=== PATIENT | male | born 1970 | race Caucasian/White ===

== ENCOUNTER 2018-01-20 10:30 | Inpatient (IN) | payer MEDICARE, MEDICAID ==
[~2018-01-20] VITALS: Ht 172.7 cm; Wt 94.3 kg
[~2018-01-20 10:30] MED LIST: BUPR75TA3; DULO60CA45; METF500T7
--- NOTE | 2018-01-20 10:40 | NUR ---
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 DENIES HEAD TRAUMA. VSS. COLLIN BY FOR EVAL. SAFETY AND COMFORT MEASURES PROVIDED. WILL MONITOR.
[2018-01-20] MEDS ORDERED: ONDANSETRON HCL/PF 4 MG/2 ML VIAL ONE (11:50)
--- NOTE | 2018-01-20 11:50 | NUR ---
IV ACCESS STARTED. BLOOD DRAWN FOR LABS. MEDICATED ORDERED.
[2018-01-20] MEDS ORDERED: FENTANYL PF 100MCG/2ML AMPUL ONE (11:51)
[2018-01-20] MEDS ORDERED: IV NS 0.9% 1,000 ML BAG IV ONE (12:00)
[2018-01-20] MEDS ORDERED: FENTANYL PF 100MCG/2ML AMPUL IV ONE (12:00)
[2018-01-20] MEDS ORDERED: ONDANSETRON HCL/PF - ER 4 MG/2 ML VIAL IV ONE (12:00)
[2018-01-20 12:07] LABS: BASOPHILS % (AUTO) 0.2 % (0.0-2.0); EOSINOPHILS % (AUTO) 1.1 % (0.0-6.0); HEMATOCRIT 42 % (39-51); HEMOGLOBIN 14.2 g/dL (13.5-17.5); LYMPHOCYTES % (AUTO) 16.7 % (20.0-44.0); MEAN CORPUSCULAR HGB CONC 34 g/dl (31.0-36.0); MEAN CORPUSCULAR VOLUME 93 fL (80-96); MONOCYTES # (AUTO) 0.7 /CMM (0.1-1.30); MONOCYTES % (AUTO) 11.4 % (2.0-12.0); NEUTROPHILS # (AUTO) 4.1 /CMM (1.8-8.9); NEUTROPHILS % (AUTO) 70.6 % (43.0-81.0); PLATELET COUNT (AUTO) 162 /CMM (150-450); RDW COEFFICIENT OF VARIATION 13.2 (11.5-15.0); RED BLOOD CELL COUNT(AUTO) 4.47 MIL/uL (4.5-6.0); WHITE BLOOD COUNT (AUTO) 5.7 K/uL (4.3-11.0)
[2018-01-20 12:08] LABS: CALCIUM, SERUM 8.1 mg/dL (8.5-10.1); CREATININE 0.6 mg/dL (0.6-1.3); POTASSIUM 3.7 mmol/L (3.5-5.1)
[2018-01-20 12:11] LABS: INR 0.94 (0.85-1.15)
--- NOTE | 2018-01-20 12:57 | NUR ---
PT IS ASSIGNED TO MED SURG RM#: [id number], PT IS DIAGNOSED WITH RIGHT SHOULDER FRACTURE, AND DEE DÍAZ IS THE ACCEPTING MD/TREE LOADER MEAT.
--- NOTE | 2018-01-20 13:42 | NUR ---
REPORT GIVEN TO PAULETTE PEREZ FOR MS 206.
--- NOTE | 2018-01-20 14:45 | NUR ---
CAREER PLACEMENT SPECIALIST RECEIVED PATIENT FROM E.R. DEPARTMENT, A/OX3, VERBALLY RESPONSIVE BUT DROWSY. PATIENT C/O PAIN ON HIS RIGHT SHOULDER 12/17, PATIENT SKIN ASSESSMENT COMPLETED, PHOTOS TAKEN AND PLACED IN CHART, PHYSICAL ASSESSMENT COMPLETED, LEFT AC #18 PATENT AND FLUSHES WELL, PATIENT KEPT COMFORTABLE WHILE WAITING FOR ADMISSION ORDERS.
[2018-01-20] MEDS ORDERED: ONDANSETRON HCL/PF 4 MG/2 ML VIAL IVP PRN (15:00)
[2018-01-20] MEDS ORDERED: ACETAMINOPHEN 325 MG TABLET PO PRN (15:00)
[2018-01-20] MEDS ORDERED: ZOLPIDEM TARTRATE 5 MG TABLET PO PRN (15:00)
[2018-01-20] MEDS ORDERED: MAGNESIUM HYDROXIDE 30 ML UDC PO PRN (15:00)
[2018-01-20] MEDS ORDERED: HYDROCODONE/APAP 5/325MG 1 EACH TABLET PO PRN (15:00)
[2018-01-20] MEDS ORDERED: MAG HYDROX/AL HYDROX/SIMETH 30 ML UDC PO PRN (15:00)
[2018-01-20 16:21] VITALS: BP 131/85
--- NOTE | 2018-01-20 17:00 | NUR ---
RN NOTES RECEIVED A CALL FROM ROSSY VILLALPANDO, PATIENT WILL NOT LIKELY HAVE ANY SURGICAL INTERVENTION, BUT WOULD LIKE TO ORDER CT SCAN OF RIGHT SHOULDER FOR CONFIRMATION. PATIENT'S SLING APPLIED TO RIGHT ARM. WILL CONTINUE TO MONITOR.
--- NOTE | 2018-01-20 18:58 | NUR ---
RN NOTES PATIENT ASLEEP BUT EASILY AROUSABLE, CT CHEST COMPLETED, BUT RESULT STILL PENDING. BREATHING EVEN AND UNLABORED, NO SOB NOTED, DENIES PAIN OR DISCOMFORT AT THIST ALVA, PATIENT ATE DINNER, NEEDS ATTENDED AND MET, CALL LIGHT WITHIN REACH, SAFETY MEASURES IN PLACED, BED ALARM ON, WILL CONTINUE TO MONITOR.
--- NOTE | 2018-01-20 19:00 | NUR ---
MS RN NOTES RECEIVE PT IN BED A/O X4 , NO S/S OF DISTRESS, STABLE, SAFETY MEASURES IN PLACE, CALL LIGHT WITHIN REACH, WILL CONTINUE TO MONITOR
[2018-01-20 20:00] VITALS: BP 130/72
[2018-01-20] MEDS: HYDROCODONE/APAP 10/325MG 1 EA TABLET PO PRN (21:24)
[2018-01-21 06:20] LABS: BASOPHILS % (AUTO) 0.3 % (0.0-2.0); EOSINOPHILS % (AUTO) 1.4 % (0.0-6.0); HEMATOCRIT 42 % (39-51); HEMOGLOBIN 14.4 g/dL (13.5-17.5); LYMPHOCYTES # (AUTO) 0.9 /CMM (0.8-4.8); LYMPHOCYTES % (AUTO) 18.3 % (20.0-44.0); MEAN CORPUSCULAR HGB CONC 34 g/dl (31.0-36.0); MEAN CORPUSCULAR VOLUME 94 fL (80-96); MONOCYTES # (AUTO) 0.7 /CMM (0.1-1.30); MONOCYTES % (AUTO) 13.2 % (2.0-12.0); NEUTROPHILS # (AUTO) 3.3 /CMM (1.8-8.9); NEUTROPHILS % (AUTO) 66.8 % (43.0-81.0); PLATELET COUNT (AUTO) 141 /CMM (150-450); RDW COEFFICIENT OF VARIATION 13.3 (11.5-15.0); RED BLOOD CELL COUNT(AUTO) 4.48 MIL/uL (4.5-6.0)
[2018-01-21 06:38] LABS: CALCIUM, SERUM 7.8 mg/dL (8.5-10.1); CREATININE 0.7 mg/dL (0.6-1.3); MAGNESIUM 1.9 mg/dL (1.8-2.4); PHOSPHORUS 3.5 mg/dL (2.5-4.9); POTASSIUM 4.2 mmol/L (3.5-5.1)
--- NOTE | 2018-01-21 06:39 | NUR ---
MS RN NOTES PT ASLEEP COMFORTABLY IN BED AND EASILY AWAKEN HEAD OF BED ELEVATED FOR BETTER LUNG EXPANSION AND GOOD CIRCULATION. TOLERATING ROOM AIR 99% NOT IN RESPIRATORY DISTRESS. STABLE CONDITION. NO ACUTE CHANGES THROUGHOUT THE SHIFT. PT KEPT CLEAN AND DRY AND COMFORT. NURSING CARE RENDERED. NEEDS ATTENDED AND ANTICIPATED. GOOD SKIN CARE PROVIDED. ON LOW BED TO ENSURE SAFETY, CALL LIGHT WITHIN REACH, WILL ENDORSE TO THE NEXT SHIFT CONTINUE PLAN OF CARE
--- NOTE | 2018-01-21 07:25 | NUR ---
ms rn initial notes Received patient in bed, asleep, head of bed elevated, no SOB or distress noted, on room air and tolerated well. Right sling in placed. No facial grimace noted. IV intact and patent. Call light with in patient reach, will continue to monitor accordingly.
[2018-01-21 08:00] VITALS: BP 124/79
[2018-01-21 16:00] VITALS: BP 135/77
[2018-01-21] MEDS ORDERED: Z GUARD REMEDY 2 OZ OINT TP PRN (16:00)
--- NOTE | 2018-01-21 19:00 | NUR ---
MS RN NOTES RECEIVE PT IN BED A/O X 3 , NO S/S OF DISTRESS, STABLE, SAFETY MEASURES IN PLACE, CALL LIGHT WITHIN REACH, WILL CONTINUE TO MONITOR
--- NOTE | 2018-01-21 19:14 | NUR ---
ms rn closing notes All needs provided, attended, and anticipated. Patient in stable condition. Endorsed to next shift RN to continue care.
[2018-01-21 20:00] VITALS: BP 132/73
[2018-01-21] MEDS: HYDROCODONE/APAP 10/325MG 1 EA TABLET PO PRN (21:23)
--- NOTE | 2018-01-22 06:36 | NUR ---
MS RN NOTES PT IN BED NOT IN DISTRESS AM CARE PROVIDED. TOLERATING ROOM AIR 98%. STABLE CONDITION. NO ACUTE CHANGES THROUGHOUT THE SHIFT. KEPT CLEAN AND DRY AND COMFORT. NURSING CARE RENDERED. NEEDS ATTENDED AND ANTICIPATED. REMAIN RUE SLING. ON LOW BED TO ENSURE SAFETY, CALL LIGHT WITHIN REACH, WILL ENDORSE TO THE NEXT SHIFT CONTINUE PLAN OF CARE
[2018-01-22] MEDS: HYDROCODONE/APAP 10/325MG 1 EA TABLET PO PRN (06:41)
--- NOTE | 2018-01-22 07:30 | NUR ---
ms rn initial notes Received patient in bed, awake, head of bed elevated, no SOB or distress noted, on room air and tolerated well. IV intact and patent, HL only. Patient is alert and oriented x 3, verbally responsive and able to make needs known. No complaint of pain or discomfort at this time. Right shoulder sling in placed. Call light with in patient reach, will continue to monitor accordingly.
[2018-01-22 08:00] VITALS: BP_SYST 124; BP_SYST 127; BP_DIAS 70; BP_DIAS 79
[2018-01-22 16:00] VITALS: BP 130/71
--- NOTE | 2018-01-22 19:23 | NUR ---
ms rn closing notes All needs provided, attended, and anticipated, patient is in stable condition, endorsed to next shift RN to continue care. Call light with in patient reach.
--- NOTE | 2018-01-22 19:30 | NUR ---
RN NOTES RECEIVED PATIENT IN BED AWAKE, AO X 3, ABLE TO MAKE NEEDS KNOWN. NO ACUTE DISTRESS NOTED. IV SITE PATENT, INTACT; FLUSHED. RIGHT UPPER EXTREMITY IN SLING. SAFETY REMINDERS GIVEN. ON LOW BED WITH BILATERAL UPPER SIDE RAILS UP. CALL GIBSON WITHIN EASY REACH. WILL CONTINUE TO MONITOR.
[2018-01-22 19:57] VITALS: BP 131/74
[2018-01-22 20:00] VITALS: BP 131/74
--- NOTE | 2018-01-23 06:11 | NUR ---
RN NOTES PATIENT ASLEEP, EASILY AROUSABLE. RESPIRATIONS EVEN. NO SIGNS OF PAIN NOTED. NEEDS ATTENDED. KEPT CLEAN, DRY, AND COMFORTABLE. SAFETY PRECAUTIONS AND COMFORT MEASURES IN PLACE. WILL GIVE REPORT TO DAY SHIFT FOR CONTINUITY OF CARE.
[2018-01-23 08:00] VITALS: BP 122/64
[2018-01-23 08:10] VITALS: BP 122/64
--- NOTE | 2018-01-23 10:02 | NUR ---
WOUND CARE CONSULT: PT IS AMBULATORY AND CONTINENT WITH SLING ON RT UPPER EXTREMITY. DRY SCAB NOTED TO RT LOWER LEG. NO DRAINAGE, TENDERNESS OR REDNESS NOTED. WILL SEE PRN. IN AGREEMENT WITH PLAN OF CARE. CURRENT VIKY SCORE IS 19.
--- NOTE | 2018-01-23 15:35 | NUR ---
ms rn notes Patient was informed by case finishing machine adjuster about discharge and accepted by [facility] and per patient I don't want to go there and explained the risk and benefits x 3 and still insisted not to go there, per patient " just send me on the street", patient was very aggressive and called security, verbally abusive and tried to swing on the nurses. IV access disconnected and dressed. Patient left against medical advice, refused to sign discharge paper and belongings list. MD and charge nurse made aware.
[2018-01-23 16:05] VITALS: BP 125/74
== END 2018-01-23 15:35 | disposition left against medical advice (07) | DRG 563 ==
LOC: ER 10:32 → MEDSG2 13:23
PROVIDERS: ADMIT Nurse Practitioner Acute Care; ATTEND Nurse Practitioner Acute Care
DX: S42.211A Unspecified displaced fracture of surgical neck of right humerus, initial encounter for closed fracture (principal); S22.41XA Multiple fractures of ribs, right side, initial encounter for closed fracture; W18.30XA Fall on same level, unspecified, initial encounter; Y92.89 Other specified places as the place of occurrence of the external cause; E11.9 Type 2 diabetes mellitus without complications; F32.9 Major depressive disorder, single episode, unspecified; Z59.0 Homelessness; E66.9 Obesity, unspecified; Z68.31 Body mass index [BMI] 31.0-31.9, adult; F15.10 Other stimulant abuse, uncomplicated; F12.10 Cannabis abuse, uncomplicated; I10 Essential (primary) hypertension; F41.9 Anxiety disorder, unspecified; Z79.84 Long term (current) use of oral hypoglycemic drugs; Z79.899 Other long term (current) drug therapy
CPT/HCPCS: 36415; 71045-TC; 73030-TC; 73200-TC; 80048-TC; 80061-TC; 83735-TC; 84100-TC; 85025-TC; 85730-TC; 87081-TC; A4565; A4606; J2405; J3010; J7030; Z7610

== ENCOUNTER → 2022-07-20 | Emergency (ER) | payer MEDICAID, MEDICARE ==
[~2022-07-20] VITALS: Ht 172.7 cm; Wt 106.6 kg
[~2022-07-20] MED LIST changes: +DIGO125T PO; +DILT60TA3 PO; +LISI-768 PO; +METF-881; -METF500T7; +METO25TA20 PO; +RIVA10TA PO
[2022-07-20 16:20] VITALS: BP 96/56
--- NOTE | 2022-07-20 16:28 | NUR ---
CALLED FOR TRIAGE, NO RESPONSE
== END | disposition home or self-care (01) ==
LOC: ER 16:23
DX: F19.20 Other psychoactive substance dependence, uncomplicated (principal); I10 Essential (primary) hypertension; E11.9 Type 2 diabetes mellitus without complications; F41.9 Anxiety disorder, unspecified; F32.A Depression, unspecified; F17.200 Nicotine dependence, unspecified, uncomplicated; Z79.899 Other long term (current) drug therapy

== ENCOUNTER 2022-07-22 15:16 | Inpatient (IN) | payer MEDICAID ==
[~2022-07-22] VITALS: Ht 170.2 cm; Wt 108.9 kg
[~2022-07-22 15:16] MED LIST changes: -DIGO125T PO; -DILT60TA3 PO; -LISI-768 PO; -METO25TA20 PO; -RIVA10TA PO
[2022-07-22] MEDS ORDERED: KETAMINE HCL (500MG/10ML) 50 MG/ML VIAL ONE (15:45)
[2022-07-22] MEDS ORDERED: DILTIAZEM HCL 25 MG IV ONE ×2 (15:48→18:05)
[2022-07-22] MEDS ORDERED: KETAMINE HCL (500MG/10ML) 50 MG/ML VIAL IV ONE (16:00)
[2022-07-22] MEDS ORDERED: DILTIAZEM HCL 50 MG IV IV ONE ×2 (16:00→18:00)
[2022-07-22 16:03] LABS: BASOPHILS % (AUTO) 0.3 % (0.0-2.0); EOSINOPHILS % (AUTO) 0.2 % (0.0-6.0); HEMATOCRIT 43 % (39-51); HEMOGLOBIN 14.2 g/dL (13.5-17.5); LYMPHOCYTES # (AUTO) 2.4 K/uL (0.8-4.8); LYMPHOCYTES % (AUTO) 17.8 % (20.0-44.0); MEAN CORPUSCULAR HGB CONC 33 g/dl (31.0-36.0); MEAN CORPUSCULAR VOLUME 95 fL (80-96); MONOCYTES % (AUTO) 14.3 % (2.0-12.0); NEUTROPHILS # (AUTO) 9.2 K/uL (1.8-8.9); NEUTROPHILS % (AUTO) 67.4 % (43.0-81.0); PLATELET COUNT (AUTO) 128 K/uL (150-450); RED BLOOD CELL COUNT(AUTO) 4.56 MIL/uL (4.5-6.0); WHITE BLOOD COUNT (AUTO) 13.7 K/uL (4.3-11.0)
[2022-07-22 16:20] LABS: CALCIUM, SERUM 7.7 mg/dL (8.5-10.1); CARBON DIOXIDE 28 mmol/L (21-32); CHLORIDE 105 mmol/L (98-107); CREATININE 0.7 mg/dL (0.6-1.3); GLUCOSE 117 mg/dL (74-106); POTASSIUM 3.6 mmol/L (3.5-5.1); SODIUM SERUM 136 mmol/L (136-145); UREA NITROGEN, BLOOD 19 mg/dL (7-18)
[2022-07-22] MEDS ORDERED: DIGO125T PO (17:42)
[2022-07-22] MEDS ORDERED: RIVA10TA PO (17:42)
[2022-07-22] MEDS ORDERED: LISI-768 PO (17:42)
[2022-07-22] MEDS ORDERED: METO25TA20 PO (17:42)
[2022-07-22] MEDS ORDERED: DILT60TA3 PO (17:42)
--- NOTE | 2022-07-22 19:09 | NUR ---
BIBA RA60 Homeless picked up from [facility] c/o Bilateral Leg-Knee pain. PT WAS FOUND IN AFIB RVR AND GIVEN CARDIZEM IVP. PT CURRENTLY AT A RATE OF 90BPM. AWAKE AND ALERT X4 BREATHIND EVEN AND UNLABORED REMAINS ON MONITOR AND V/S WNL.
--- NOTE | 2022-07-22 19:10 | NUR ---
COVID SWAB DONE AND SENT
[2022-07-22] MEDS ORDERED: Z GUARD REMEDY 4 OZ OINT TP PRN (21:00)
[2022-07-22] MEDS ORDERED: ACETAMINOPHEN 325 MG TABLET PO PRN (21:00)
[2022-07-22] MEDS ORDERED: MAGNESIUM HYDROXIDE 30 ML UDC PO PRN (21:00)
[2022-07-22] MEDS ORDERED: MAG HYDROX/AL HYDROX/SIMETH 30 ML UDC PO PRN (21:00)
[2022-07-22] MEDS ORDERED: ONDANSETRON HCL/PF 4 MG/2 ML VIAL IVP PRN (21:00)
[2022-07-22] MEDS ORDERED: ZOLPIDEM TARTRATE 5 MG TABLET PO PRN (21:00)
[2022-07-22] MEDS: FUROSEMIDE 20 MG/2 ML VIAL IV ONE (21:00)
[2022-07-22] MEDS: CEFTRIAXONE 1 G in IV D5W 50 ML IV SCH (21:30)
--- NOTE | 2022-07-22 22:49 | NUR ---
REPORT GIVEN TO ER SALVADOR Addendum: 07/22/22 at 2311 by ENRIKE ANA FRANCO
--- NOTE | 2022-07-22 23:24 | NUR ---
PT TRANSPORTED TO ROOM 304-2 ON CARDIAC PER ACLS
--- NOTE | 2022-07-22 23:30 | NUR ---
SPRAY MACHINE LOADER ADMISSION NOTE RECEIVED REPORT FROM ANA GARCIA IN ER. PT IS BEING ADMITTED FOR A FIB, RVR. PT A/O X4, ABLE TO VERBALIZE NEEDS. PT ON ROOM AIR, ABLE TO TOLERATE ROOM AIR. NO ACUTE DISTRESS NOTED. NO C/O PAIN AT THIS TIME. PT ABLE TO AMBULATE TO BATHROOM WITH ASSIST. PT HAS REDNESS, AND RASH TO GROIN AREA, AND TO SACRAL AREA, AND BILATERAL BUTTOCKS. REDNESS ALSO NOTED TO BILATERAL FEET, AND RIGHT HAND. DISCOLORATIONS TO BLE, AND EXCORATIONS TO SILVERIO KNEES. IV ACCESS TO RIGHT FA 20 G, PATENT, AND INTACT. SAFETY MEASURES IN PLACE: BED LOCKED, IN LOWEST POSITION, SIDE RAILS UP X 2, CALL LIGHT WITHIN REACH. WILL CONTINUE TO MONITOR PT.
[2022-07-23] MEDS ORDERED: CEFTRIAXONE 1 G VIAL ONE (01:36)
[2022-07-23] MEDS ORDERED: FUROSEMIDE 20 MG/2 ML VIAL ONE (01:37)
[2022-07-23] MEDS: FUROSEMIDE 20 MG/2 ML VIAL IV ONE (02:33)
[2022-07-23] MEDS: CEFTRIAXONE 1 G in IV D5W 50 ML IV SCH (02:35)
[2022-07-23 04:00] VITALS: BP 117/71
[2022-07-23 06:03] LABS: BASOPHILS % (AUTO) 0.2 % (0.0-2.0); EOSINOPHILS % (AUTO) 0.9 % (0.0-6.0); HEMATOCRIT 42 % (39-51); HEMOGLOBIN 13.9 g/dL (13.5-17.5); LYMPHOCYTES # (AUTO) 1.7 K/uL (0.8-4.8); MEAN CORPUSCULAR HGB CONC 33 g/dl (31.0-36.0); MEAN CORPUSCULAR VOLUME 96 fL (80-96); MONOCYTES # (AUTO) 0.8 K/uL (0.1-1.30); NEUTROPHILS # (AUTO) 5.8 K/uL (1.8-8.9); NEUTROPHILS % (AUTO) 69.9 % (43.0-81.0); PLATELET COUNT (AUTO) 116 K/uL (150-450); RED BLOOD CELL COUNT(AUTO) 4.39 MIL/uL (4.5-6.0); WHITE BLOOD COUNT (AUTO) 8.4 K/uL (4.3-11.0)
--- NOTE | 2022-07-23 07:05 | NUR ---
LONG TERM CARE SOCIAL WORKER CLOSING NOTE LEFT PT SITTING IN BED. PT A/O X4, ABLE TO VERBALIZE NEEDS. PT ON ROOM AIR, ABLE TO TOLERATE ROOM AIR. NO ACUTE DISTRESS NOTED. NO C/O PAIN AT THIS TIME. PT ABLE TO AMBULATE TO BATHROOM WITH ASSIST. IV ACCESS TO RIGHT FA 20 G, IV PATENT, AND INTACT. SAFETY MEASURES IN PLACE: BED LOCKED, IN LOWEST POSITION, SIDE RAILS UP X 2, CALL LIGHT WITHIN REACH. WILL ENDORSE PT'S CARE TO AM NURSE.
--- NOTE | 2022-07-23 07:30 | NUR ---
INDOOR LANDSCAPE ARCHITECT OPENING NOTES RECEIVED PATIENT IN THE ROOM , AWAKE , STTING ON CHAIR , ROOM AIR WITH NO SOB OR DISTRESS NOTED , A/O X 3 AND TALKING TO HIMSELF , , NO C/O OF PAIN AND DISCOMFORT , RIGHT FA IV LINE #20 G INTACT , ON TELE WITH A- FLUTTER HR 144 , SAFETY MEASURES PROVIDED , CALL LIGHT WITHIN REACH , AND ALL NEED ATTENDED AND WILL CONTINUE TO MONITOR
[2022-07-23 08:12] VITALS: BP 140/82
[2022-07-23 08:17] LABS: CALCIUM, SERUM 7.6 mg/dL (8.5-10.1); CREATININE 0.9 mg/dL (0.6-1.3); PHOSPHORUS 2.6 mg/dL (2.5-4.9); POTASSIUM 3.6 mmol/L (3.5-5.1)
[2022-07-23] MEDS: CALCIUM CARB 600MG /VIT D 1 EACH TABLET PO SCH (08:35)
[2022-07-23] MEDS: DIGOXIN 0.125 MG TABLET PO SCH (08:37)
[2022-07-23] MEDS: RIVAROXABAN 10 MG TABLET PO SCH (08:39)
[2022-07-23] MEDS ORDERED: LISINOPRIL (5MG) 5 MG TABLET PO SCH (09:00)
[2022-07-23] MEDS ORDERED: DILTIAZEM HCL PO SCH (09:00)
[2022-07-23] MEDS ORDERED: METOPROLOL TARTRATE 25 MG TABLET PO SCH (09:00)
--- NOTE | 2022-07-23 09:00 | NUR ---
RN NOTES PATIENT IS ON TELE AND DOESNT WANT TO USE THE MOBILE MANAGER , DESPITE EXPLAINATION OF RISKS AND BENEFTIS . ALERT AND ABLE TO MAKE NEEDS KNOWN BUT WITH CONFUSION AND FORGETFULNESS .
[2022-07-23] MEDS: METOPROLOL TARTRATE 25 MG TABLET PO SCH ×3 (09:26→17:40)
[2022-07-23] MEDS: LORAZEPAM 1 MG TABLET PO PRN ×2 (09:26→20:02)
--- NOTE | 2022-07-23 09:26 | NUR ---
RN NOTES PATIENT NOTED TO BE VERY ANXIOUS AND YELLING TO STAFF AND WANTS TO GO OUT AND OFFERED HIM TO SIGN AGAINST MEDICAL ADVICE AND HE REFUSED , ATIVAN WAS GIVEN ORDERED , ALL MEDS WERE TAKEN , CONTINUE TO MONITOR
[2022-07-23] MEDS: NICOTINE PATCH (21MG) 21 MG PATCH.TD24 TD SCH (12:37)
[2022-07-23 12:40] VITALS: BP 108/73
--- NOTE | 2022-07-23 15:00 | NUR ---
Bioprocessing Manufacturing Technician Consult SW received a consult for homelessness. Pt. is a 52 y.o. male who was admitted for a Fib and Rvr. SW could not conduct assessment due to pt. being asleep. SW attempted to wake pt. who was unresponsive. LALO will follow up again later.
[2022-07-23 15:47] VITALS: BP 112/85
--- NOTE | 2022-07-23 18:37 | NUR ---
MANNEQUIN MOLDER CLOSING NOTES PATIENT IN THE ROOM , ALERT AND ORIENTED WITH SOME WITH CONFUSION , AWAKE , STTING ON CHAIR , ROOM AIR WITH NO SOB OR DISTRESS NOTED , AND TALKING TO HIMSELF , ALL DUE MEDS GIVEN , NO C/O OF PAIN AND DISCOMFORT , RIGHT FA IV LINE #20 G INTACT , ON TELE AND PATIENT REFUSED CORE PASTER , SAFETY MEASURES PROVIDED , CALL LIGHT WITHIN REACH , AND ALL NEED ATTENDED AND WILL ENDORSED TO NEXT SHIFT Addendum: 07/23/22 at 2006 by JASON MATA RN OPENING NOTE
[2022-07-23 20:00] VITALS: BP 108/79
[2022-07-24] VITALS: BP 12/57
--- NOTE | 2022-07-24 00:17 | NUR ---
RN NOTE PTS BP 102/57 NOTIFIED APPLIANCE SERVICE TECHNICIAN GUME BALBUENA TO HOLD MIDNIGHT DOSE OF METOPROLOL.
[2022-07-24 04:00] VITALS: BP 119/81
[2022-07-24] MEDS: METOPROLOL TARTRATE 25 MG TABLET PO SCH ×3 (05:22→12:38)
--- NOTE | 2022-07-24 07:20 | NUR ---
RETAIL BUSINESS ANALYST OPENING NOTES: RECEIVED PT IN BED AWAKE, A/O X 3 AND ABLE TO VERBALIZED NEEDS. NO SOB OR CARDIAC DISTRESS NOTED. PATIENT ON TELE BUT REFUSED TO APPLY GAME TRAPPER. DENIES ANY PAIN AT THIS TIME. IV ACCESS ON RFA G20 PATENT, INTACT AND SALINE LOCKED. SAFETY PRECAUTION MAINTAINED: BED LOCKED AND IN LOWEST POSITION, SIDE RAILS UP X 2. CALL LIGHT IN EASY REACH FOR HELP. WILL MONITOR PT ACCORDINGLY.
[2022-07-24 08:00] VITALS: BP 106/79
[2022-07-24] MEDS: CALCIUM CARB 600MG /VIT D 1 EACH TABLET PO SCH (08:52)
[2022-07-24] MEDS: NICOTINE PATCH (21MG) 21 MG PATCH.TD24 TD SCH (08:53)
[2022-07-24] MEDS: DIGOXIN 0.125 MG TABLET PO SCH (08:53)
[2022-07-24] MEDS: RIVAROXABAN 10 MG TABLET PO SCH (09:08)
[2022-07-24 09:51] LABS: CALCIUM, SERUM 8.5 mg/dL (8.5-10.1); CREATININE 0.8 mg/dL (0.6-1.3)
[2022-07-24 12:38] VITALS: BP 116/74
[2022-07-24] MEDS: OLANZAPINE 2.5 MG TABLET PO SCH ×2 (12:38→13:00)
--- NOTE | 2022-07-24 13:00 | NUR ---
RN NOTES: PT ACTING WEIRD WANTED TO GO HOME AGAINST MEDICAL ADVICE. GAVE ZYPREXA PO BUT INEFFECTIVE. CHARGE NURSE MADE AWARE. CONTACTING CRISIS TEAM.
--- NOTE | 2022-07-24 14:05 | NUR ---
RN NOTES: PATIENT REFUSED BODY ASSESSMENT. HE WANTED TO LEAVE IMMEDIATELY.
--- NOTE | 2022-07-24 14:06 | NUR ---
AMA RN NOTES: PATIENT WENT AMA,ALERT AND ORIENTED X 2 ABLE TO VERBALIZED NEEDS. EXPLAINED THE RISK AND BENEFITS OF AMA, PT UNDERSTAND AND WANTED TO GO HOME. PT KEPT REFUSING ICE HANDLER AND WANTED TO SMOKE, PER MD HE CANT DOWN TO SMOKE AND INSTEAD HE HAD A PRESCRIBED NICOTINE PATCH. DR PAOLO SALEH (CRISIS TEAM) EVALUATED PT VIA PHONE AND PER DR SALEH WE CANT HOLD THE PT EVEN HE'S NOT MEDICALLY CLEARED TO BE DC. 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 REMOVED IV ACCESS AND IDENTIFICATION BAND. DR DÍAZ WAS INFORMED PT LEFT AMA. PT WENT DOWN AMBULATORY AND ACCOMPANIED BY WOOD MACHINIST.
== END 2022-07-24 14:00 | disposition left against medical advice (07) | DRG 201 ==
LOC: ER 15:18 → TELE 22:27
PROVIDERS: ADMIT Nurse Practitioner Acute Care; ATTEND Nurse Practitioner Acute Care
DX: I48.91 Unspecified atrial fibrillation (principal); I50.33 Acute on chronic diastolic (congestive) heart failure; E83.51 Hypocalcemia; D69.6 Thrombocytopenia, unspecified; E11.9 Type 2 diabetes mellitus without complications; E78.5 Hyperlipidemia, unspecified; D72.829 Elevated white blood cell count, unspecified; E66.9 Obesity, unspecified; F17.200 Nicotine dependence, unspecified, uncomplicated; I48.92 Unspecified atrial flutter; I11.0 Hypertensive heart disease with heart failure; F41.9 Anxiety disorder, unspecified; F32.A Depression, unspecified; R79.89 Other specified abnormal findings of blood chemistry; Z79.01 Long term (current) use of anticoagulants; F19.10 Other psychoactive substance abuse, uncomplicated; R53.1 Weakness; Z59.00 Homelessness unspecified; Z91.14 Patient's other noncompliance with medication regimen; Z91.199 Patient's noncompliance with other medical treatment and regimen due to unspecified reason; Z79.84 Long term (current) use of oral hypoglycemic drugs; Z68.37 Body mass index [BMI] 37.0-37.9, adult; M62.9 Disorder of muscle, unspecified; F32.9 Major depressive disorder, single episode, unspecified; F90.9 Attention-deficit hyperactivity disorder, unspecified type; F15.159 Other stimulant abuse with stimulant-induced psychotic disorder, unspecified; Z79.899 Other long term (current) drug therapy; Z82.5 Family history of asthma and other chronic lower respiratory diseases; Z83.3 Family history of diabetes mellitus; Z87.81 Personal history of (healed) traumatic fracture; Z20.822 Contact with and (suspected) exposure to COVID-19
CPT/HCPCS: 36415; 71045-TC; 80048-TC; 83735-TC; 83880; 84100-TC; 84484-TC; 85025-TC; 87081-TC; 93307-TC; C9803; G0378; J0696; J1940; J3490; J7030; J7060